=== PATIENT | male | born 1975 | race Caucasian/White ===

== ENCOUNTER 2017-04-12 05:22 | Emergency (ER) | payer OTHER ==
--- NOTE | ~2017-04-12 | CT16 ---
[facility] A Service of [facility] RADIOLOGY TEXT RESULTS PATIENT: AYUSH SCHMID LOCATION: [facility] : 79 UNIT #: [id number] AGE: [address]: Fernie Paz MD SEX: M ORDER DR: [id number] [facility] [address] [place], [place] [address] [id number] E MR#: [id number] Acc #: [id number] NAME: AYUSH SCHMID. : 1975 SEX: M STUDY DATE/TIME: 04/12/2017 8:05 UNIT: [facility] ROOM: STUDY DESCRIPTION: CT Angio Chest for PE Attending Physician: Fernie Paz M.D. Ordering Physician: Fernie Paz M.D. Primary Care Physician: No Primary Care Physician MEDICAL IMAGING REPORT This report is preliminary unless electronic signature is present EXAM CT angio of the chest with IV contrast pulmonary vessel protocol DATE 04/12/2017 HISTORY 42-year-old male with back pain when breathing intermittently for 2 weeks. Elevated D-dimer today. Previous history of pulmonary embolism. Lupus. COMPARISON CT angiography of the chest with contrast 04/18/2016. PROCEDURE 2 mm axial images through the chest after intravenous contrast administration. 3D coronal MIP reformatted images were also obtained. This CT exam was performed with one or more of the following radiation dose reduction techniques: Automatic exposure control, adjustment of mA and/or kV according to patient size, and iterative reconstruction. FINDINGS No pulmonary embolism, aortic aneurysm or aortic dissection is seen. No pericardial effusion or pleural effusion. Heart size within normal limits. No acute airspace disease is identified. No pathologic adenopathy. No pleural effusion. Included portions of the upper abdominal organs are within normal limits. No acute osseous abnormalities are identified. IMPRESSION 1. No pulmonary embolism. No thoracic aortic aneurysm or aortic dissection. Clear lungs. No acute osseous abnormalities. [facility] A Service of [facility] RADIOLOGY TEXT RESULTS PATIENT: AYUSH SCHMID LOCATION: [facility] : 79 UNIT #: [id number] AGE: [address]: Fernie Paz MD SEX: M ORDER DR: Dictated by... Nissa Sandy M.D. THIS IS AN ELECTRONICALLY VERIFIED REPORT Nissa Sandy M.D. at 04/13/2017 8:31 AM MAX/simon TD: 04/12/2017 09:51 JOB #: [id number] MEDICAL IMAGING REPORT Page 1 of 1 COPY
[~2017-04-12 05:22] MED LIST: ACETAMINOPHEN PO; ALBUTEROL 0.5ML INH; ARIXTRA7.5 MG/0.6 PO; AZITHROMYCIN250 MG PO; COUMADIN10 MG PO; FLEXERIL10 M1 PO; FLEXERIL10 MG PO; IBUPROFEN800 MG PO; MEDROL DOSEPAK4 MG PO; MORGIDOX100 MG PO; NO MEDICATIONS; PREDNISONE10 MG PO; VICODIN PO; XARELTO15 MG PO
[2017-04-12 06:49] LABS: BASOPHIL% 0.4 % (0-2.5); EOSINOPHIL# 0.1 X10e3 (0-0.7); EOSINOPHIL% 1.1 % (0.0-7.0); HEMATOCRIT 46.9 % (38.0-50.0); HEMOGLOBIN 15.9 gm/dL (13.0-16.0); LYMPHOCYTE# 1.3 X10e3 (1.0-3.5); LYMPHOCYTE% 23.7 % (17.0-45.0); MEAN CELL VOLUME 96.7 FL (83-96); MEAN CORPUSCULAR HEMOGLOBIN 32.8 PG (28-34); MEAN CORPUSCULAR HGB CONC 33.9 g/dL (30-36); MEAN PLATELET VOLUME 9.5 FL (6.5-11.5); MONOCYTE# 0.5 X10e3 (0-1.0); MONOCYTE% 9.6 % (3.0-12.0); NEUTROPHIL# 3.5 X10e3 (1.5-7.1); NEUTROPHIL% 65.2 % (40-75); PLATELET COUNT 190 X10e3 (140-420); RED BLOOD COUNT 4.85 X10e (3.90-5.60); RED CELL DISTRIBUTION WIDTH 14.3 % (11.0-15.5); WHITE BLOOD COUNT 5.4 X10e3 (4.0-10.5)
[2017-04-12 06:53] LABS: DIFF IND NO
[2017-04-12 07:14] LABS: GLOM FILT RATE Estimated 93.7 mL/min (>60); POTASSIUM 4.8 mmol/L (3.5-5.1)
== END 2017-04-12 09:10 | disposition home or self-care (01) ==
LOC: CED 05:22
PROVIDERS: Emergency Medicine
DX: R07.89 Other chest pain (principal); R06.02 Shortness of breath; H00.019 Hordeolum externum unspecified eye, unspecified eyelid
CPT/HCPCS: 36415; 71275; 80048; 85025; 99285; Q9967